=== PATIENT | female | born 1955 | race Caucasian/White ===

== ENCOUNTER 2018-11-25 16:31 | Observation (INO) ==
[2018-11-25 17:13] LABS: Hematocrit 41.8 % (35.3-44.9); Hemoglobin 13.9 g/dL (11.5-15.4); Mean Corpuscular HGB Conc 33.3 g/dL (31.6-35.5); Mean Corpuscular Volume 90.1 fL (83.0-100.0); Mean Platelet Volume 11.3 fL (9.4-12.4); Platelet Count 168 K/mcL (140-400); Red Blood Count 4.64 M/mcL (3.82-4.97); Red Cell Distribution Width 12.5 % (11.5-14.5); White Blood Count 6.8 K/mcL (4.3-11.1)
[2018-11-25 17:22] LABS: Prothrombin Time 11.5 Seconds (9.4-12.1)
--- NOTE | 2018-11-25 17:23 | Emergency Department Note ---
Disposition Clinical Impression: Transient cerebral ischemia Qualifiers: Transient cerebral ischemia type: unspecified Qualified Code(s): G45.9 - Transient cerebral ischemic attack, unspecified Disposition: Admitted As Inpatient Condition: Good Referrals: Zayra Russo CNP [Primary Care Provider] - Forms: ED Satisfaction Letter Time of Disposition: 18:30 General Adult HPI - General Chief complaint: ED Neuro Symptoms/Deficit Stated complaint: R sided weakness Time Seen by Provider: 11/25/18 16:51 Source: patient, family Mode of arrival: private vehicle Limitations: no limitations Nursing Notes Reviewed: Yes Vital Signs Reviewed: Yes - History of Present Illness HPI Narrative: 62-year-old female with past medical history of diabetes and high blood pressure but noticed that today at around 1400 she felt subjectively weak on her right side and began to slur her words. Patient states that she does not take any oral anti-hyperglycemics she is allergic to all of them and only takes long- acting insulin. Patient also states that she used to be on lisinopril but that did not work for her so now she is on an [id number] antihypertensive, however she has not taken this for the last 2 days because she has been busy with her mom being in the hospital. Patient states that she at first called the squad but they were unable to get to her in time and had her bring her out here. She states that she is not know how long her symptoms lasted but she thinks that they were not longer than 30 minutes. Patient has a history of previous TIA, possibly 2 previous TIAs. She was not evaluated for these, she states that she believes that they might have been strokes, however she states she has no residual deficits. Patient also reports that she has recently begun and new diet and exercise plan and has begun stinging herself with bees up to 4 times per day. Pain Scale: 0 - Related Data Home Medications Medication Instructions Recorded Confirmed Acetaminophen [Tylenol] 500 mg PO BID 11/04/17 11/04/17 Insulin Glargine,Hum.rec.anlog 48 - 50 unit SQ QAM 11/04/17 11/04/17 [Basaglar Kwikpen U-100] Tramadol HCl [Ultram] 50 mg PO BID 11/04/17 11/04/17 Allergies Allergy/AdvReac Type Severity Reaction Status Date / Time celecoxib [From Celebrex] Allergy See Verified 11/04/17 19:43 Comments ciprofloxacin [From Cipro] Allergy Abdominal Verified 11/04/17 19:42 Pain Iodinated Contrast Media Allergy See Verified 11/04/17 19:43 [Iodinated Contrast- Oral Comments and IV Dye] Sulfa (Sulfonamide Allergy Hives Verified 11/04/17 19:42 Antibiotics) sumatriptan [From Imitrex] Allergy See Verified 11/04/17 19:43 Comments Review of Systems: In addition to that documented in the HPI above, the additional ROS was obtained: Constitutional: Denies fevers or chills Eyes: Denies vision changes ENMT: Denies sore throat CV: Denies chest pain Resp: Denies SOB GI: Denies vomiting or diarrhea : Denies painful urination MSK: Denies recent trauma Skin: Denies new rashes Neuro: Reports right sided weakness and slurring speech lasting about 30m from [id number]. Endocrine: Denies unexpected weight loss Heme: Denies bleeding disorders Past Medical History - Past Medical History Attestation: Yes The following information was validated with the patient. Medical history: Reports: diabetes, fibromyalgia, hypertension, kidney stones, migraine, TIA, other Psychiatric history: Reports: no psych history [employer] history: Reports: non-contributory - Social History Smoking Status: Never smoker Smokeless Tobacco Status: No Alcohol use: Reports: none Drug use: Reports: none Physical Exam General: A&O x 3. No acute distress. Well developed, well nourished. Head: atraumatic, normocephalic. ENT: No conjunctival injection, no scleral icterus. PERRLA. EOMI. Oropharynx non- erythematous. mucous membranes moist. Neuro: No focal deficits, no speech deficit, no facial droop, mentating well. BUE/BLE Str 5/5. David UE/LE sensation intact. CN II-XII intact. Cerebellar testing with [id number] intact. NIH 0. Pulm: Lungs CTAB A/P. No wheezes, rales, ronchi. Cardio: RRR no m/r/g. Chest not tender to palpation. Abd: Soft, non-distended. Normoactive bowel sounds. Non-tender to palpation. No guarding. Non rigid. Extremities: Radial pulses 2+ david, dorsalis pedis/posterior tibialis 2+ david. No LE edema. No cyanosis, clubbing. Skin: warm, dry, intact. No rashes. Psych: Appropriate mood and affect. Answers questions appropriately. Cooperative with exam. - General Limitations: no limitations General appearance: alert, in no apparent distress Course Vital Signs Temperature 98.7 F 11/25/18 16:37 Pulse Rate 82 11/25/18 16:37 Respiratory Rate 18 11/25/18 16:37 Blood Pressure 187/95 11/25/18 16:37 O2 Sat by Pulse Oximetry 95 11/25/18 16:37 Temperature 98.7 F 11/25/18 16:37 Pulse Rate 67 11/25/18 18:16 Respiratory Rate 18 11/25/18 18:16 Blood Pressure 160/86 11/25/18 18:16 O2 Sat by Pulse Oximetry 97 11/25/18 18:16 Oxygen Delivery Oxygen Delivery Room Air Medical Decision Making - MDM Narrative Medical decision making narrative: 62-year-old female with reportedly to previous TIAs that reports with less than 30 minutes of right-sided weakness and slurring speech about 1400 today. Patient also complaining of hyperglycemia and hypertension. 1800: Patient's initial head CT was negative for any acute intracranial findings. Lab work was unremarkable except for elevated glucose. However given the patient had a collection of symptoms that are concerning for a TIA, she is at increased risk for a stroke within the next 24-48 hours. Patient could benefit from further inpatient workup with an MRI and neurologic consult. Patient was admitted to the hospitalist Dr. Bergeron who agreed to accept the patient to his service. Results of the workup including any imaging and/or labwork was shared with the patient at bedside. Patient was given an opportunity to ask questions at bedside and all of their concerns were addressed. Patient verbalized understanding and agreement with plan of care. Pt remained stable while in the department. - Medical Records Medical records reviewed: Yes I reviewed the patient's medical records. - Lab Data Lab results reviewed: Yes I reviewed the patient's lab results. Result diagrams: 11/25/18 16:55 11/25/18 16:55 Lab Results 11/25/18 11/25/18 11/25/18 Range/Units 16:55 16:55 16:55 WBC 6.8 (4.3-11.1) K/mcL RBC 4.64 (3.82-4.97) M/mcL Hgb 13.9 (11.5-15.4) g/dL Hct 41.8 (35.3-44.9) % MCV 90.1 (83.0-100.0) fL MCH 30.0 (28.0-33.3) pg MCHC 33.3 (31.6-35.5) g/dL RDW 12.5 (11.5-14.5) % Plt Count 168 (140-400) K/mcL MPV 11.3 (9.4-12.4) fL PT 11.5 (9.4-12.1) Seconds INR 1.0 APTT 37.0 H (26.0-36.0) Seconds Sodium 136 (136-145) mEq/L Potassium 3.7 (3.5-5.1) mEq/L Chloride 105 (98-107) mEq/L Carbon Dioxide 24 (23-29) mEq/L BUN 18 (8-23) mg/dL Creatinine 0.72 (0.60-1.20) mg/dL Est GFR ( Amer) > 60 (> 60) Est GFR (Non-Af Amer) > 60 (> 60) BUN/Creatinine Ratio 25 (6-26) Glucose 324 H (70-105) mg/dL Calculated Osmolality 296 (280-300) Calcium 9.3 (8.6-10.3) mg/dL Troponin I < 0.03 (< 0.04) ng/mL Urine Color (Yellow) Urine Clarity (Clear) Urine pH (5.0-8.0) pH Units Ur Specific Pratts (1.010-1.025) Urine Protein (Neg-Trace) mg/dL Urine Glucose (UA) (Normal) mg/dL Urine Ketones (Negative) mg/dL Urine Blood (Negative) Urine Nitrite (Negative) Urine Bilirubin (Negative) Urine Urobilinogen (Normal) mg/dL Ur Leukocyte Esterase (Negative) Urine Microscopic RBC (0-3) per hpf Urine Microscopic WBC (0-3) per hpf Ur Squamous Epith Cells (None-Few) per lpf Urine Bacteria (None-Few) per hpf Hyaline Casts (None-Few) per lpf Ur Culture Indicated? (NO) 11/25/18 Range/Units 17:31 WBC (4.3-11.1) K/mcL RBC (3.82-4.97) M/mcL Hgb (11.5-15.4) g/dL Hct (35.3-44.9) % MCV (83.0-100.0) fL MCH (28.0-33.3) pg MCHC (31.6-35.5) g/dL RDW (11.5-14.5) % Plt Count (140-400) K/mcL MPV (9.4-12.4) fL PT (9.4-12.1) Seconds INR APTT (26.0-36.0) Seconds Sodium (136-145) mEq/L Potassium (3.5-5.1) mEq/L Chloride (98-107) mEq/L Carbon Dioxide (23-29) mEq/L BUN (8-23) mg/dL Creatinine (0.60-1.20) mg/dL Est GFR ( Amer) (> 60) Est GFR (Non-Af Amer) (> 60) BUN/Creatinine Ratio (6-26) Glucose (70-105) mg/dL Calculated Osmolality (280-300) Calcium (8.6-10.3) mg/dL Troponin I (< 0.04) ng/mL Urine Color Yellow (Yellow) Urine Clarity Clear (Clear) Urine pH 7.0 (5.0-8.0) pH Units Ur Specific Pratts 1.018 (1.010-1.025) Urine Protein 100 H (Neg-Trace) mg/dL Urine Glucose (UA) >=1000 H (Normal) mg/dL Urine Ketones Negative (Negative) mg/dL Urine Blood Moderate H (Negative) Urine Nitrite Negative (Negative) Urine Bilirubin Negative (Negative) Urine Urobilinogen Normal (Normal) mg/dL Ur Leukocyte Esterase Negative (Negative) Urine Microscopic RBC 15-30 H (0-3) per hpf Urine Microscopic WBC 3-5 H (0-3) per hpf Ur Squamous Epith Cells Many H (None-Few) per lpf Urine Bacteria None Seen (None-Few) per hpf Hyaline Casts None Seen (None-Few) per lpf Ur Culture Indicated? NO (NO) - Radiology Data Radiology results reviewed: Yes I reviewed the patient's radiology results. - EKG Data EKG #1 EKG attestation: Yes I reviewed and interpreted this EKG. EKG results narrative: Heart rate 71, rhythm sinus, axis normal. NH 209 and prolonged, QRS 88, QTC 4:30. Less than [address] segment elevation in leads V2, V5, V6 which is also seen on previous study dated 03/06/2018.
--- NOTE | 2018-11-25 17:27 | Emergency Department Note ---
Disposition Clinical Impression: Transient cerebral ischemia Qualifiers: Transient cerebral ischemia type: unspecified Qualified Code(s): G45.9 - Transient cerebral ischemic attack, unspecified Disposition: Admitted As Inpatient Condition: Good Time of Disposition: 18:30 General Adult HPI - General Chief complaint: ED Neuro Symptoms/Deficit Stated complaint: R sided weakness Time Seen by Provider: 11/25/18 16:51 Source: patient, family Mode of arrival: private vehicle Limitations: no limitations Nursing Notes Reviewed: Yes Vital Signs Reviewed: Yes - History of Present Illness Pain Scale: 0 - Related Data Home Medications Medication Instructions Recorded Confirmed Acetaminophen [Tylenol] 500 mg PO BID 11/04/17 11/04/17 Insulin Glargine,Hum.rec.anlog 48 - 50 unit SQ QAM 11/04/17 11/04/17 [Basaglar Kwikpen U-100] Tramadol HCl [Ultram] 50 mg PO BID 11/04/17 11/04/17 Allergies Allergy/AdvReac Type Severity Reaction Status Date / Time celecoxib [From Celebrex] Allergy See Verified 11/04/17 19:43 Comments ciprofloxacin [From Cipro] Allergy Abdominal Verified 11/04/17 19:42 Pain Iodinated Contrast Media Allergy See Verified 11/04/17 19:43 [Iodinated Contrast- Oral Comments and IV Dye] Sulfa (Sulfonamide Allergy Hives Verified 11/04/17 19:42 Antibiotics) sumatriptan [From Imitrex] Allergy See Verified 11/04/17 19:43 Comments Past Medical History - Past Medical History Medical history: Reports: diabetes, fibromyalgia, hypertension, kidney stones, migraine, TIA, other Psychiatric history: Reports: no psych history [employer] history: Reports: non-contributory - Social History Smoking Status: Never smoker Smokeless Tobacco Status: No Alcohol use: Reports: none Drug use: Reports: none Physical Exam - General Limitations: no limitations General appearance: alert, in no apparent distress Course Vital Signs Temperature 98.7 F 11/25/18 16:37 Pulse Rate 82 11/25/18 16:37 Respiratory Rate 18 11/25/18 16:37 Blood Pressure 187/95 11/25/18 16:37 O2 Sat by Pulse Oximetry 95 11/25/18 16:37 Temperature 98.7 F 11/25/18 16:37 Pulse Rate 67 11/25/18 18:16 Respiratory Rate 18 11/25/18 18:16 Blood Pressure 160/86 11/25/18 18:16 O2 Sat by Pulse Oximetry 97 11/25/18 18:16 Oxygen Delivery Oxygen Delivery Room Air Medical Decision Making - Lab Data Result diagrams: 11/25/18 16:55 11/25/18 16:55 Lab Results 11/25/18 11/25/18 11/25/18 Range/Units 16:55 16:55 16:55 WBC 6.8 (4.3-11.1) K/mcL RBC 4.64 (3.82-4.97) M/mcL Hgb 13.9 (11.5-15.4) g/dL Hct 41.8 (35.3-44.9) % MCV 90.1 (83.0-100.0) fL MCH 30.0 (28.0-33.3) pg MCHC 33.3 (31.6-35.5) g/dL RDW 12.5 (11.5-14.5) % Plt Count 168 (140-400) K/mcL MPV 11.3 (9.4-12.4) fL PT 11.5 (9.4-12.1) Seconds INR 1.0 APTT 37.0 H (26.0-36.0) Seconds Sodium 136 (136-145) mEq/L Potassium 3.7 (3.5-5.1) mEq/L Chloride 105 (98-107) mEq/L Carbon Dioxide 24 (23-29) mEq/L BUN 18 (8-23) mg/dL Creatinine 0.72 (0.60-1.20) mg/dL Est GFR ( Amer) > 60 (> 60) Est GFR (Non-Af Amer) > 60 (> 60) BUN/Creatinine Ratio 25 (6-26) Glucose 324 H (70-105) mg/dL Calculated Osmolality 296 (280-300) Calcium 9.3 (8.6-10.3) mg/dL Troponin I < 0.03 (< 0.04) ng/mL Urine Color (Yellow) Urine Clarity (Clear) Urine pH (5.0-8.0) pH Units Ur Specific Solomon (1.010-1.025) Urine Protein (Neg-Trace) mg/dL Urine Glucose (UA) (Normal) mg/dL Urine Ketones (Negative) mg/dL Urine Blood (Negative) Urine Nitrite (Negative) Urine Bilirubin (Negative) Urine Urobilinogen (Normal) mg/dL Ur Leukocyte Esterase (Negative) Urine Microscopic RBC (0-3) per hpf Urine Microscopic WBC (0-3) per hpf Ur Squamous Epith Cells (None-Few) per lpf Urine Bacteria (None-Few) per hpf Hyaline Casts (None-Few) per lpf Ur Culture Indicated? (NO) 11/25/18 Range/Units 17:31 WBC (4.3-11.1) K/mcL RBC (3.82-4.97) M/mcL Hgb (11.5-15.4) g/dL Hct (35.3-44.9) % MCV (83.0-100.0) fL MCH (28.0-33.3) pg MCHC (31.6-35.5) g/dL RDW (11.5-14.5) % Plt Count (140-400) K/mcL MPV (9.4-12.4) fL PT (9.4-12.1) Seconds INR APTT (26.0-36.0) Seconds Sodium (136-145) mEq/L Potassium (3.5-5.1) mEq/L Chloride (98-107) mEq/L Carbon Dioxide (23-29) mEq/L BUN (8-23) mg/dL Creatinine (0.60-1.20) mg/dL Est GFR ( Amer) (> 60) Est GFR (Non-Af Amer) (> 60) BUN/Creatinine Ratio (6-26) Glucose (70-105) mg/dL Calculated Osmolality (280-300) Calcium (8.6-10.3) mg/dL Troponin I (< 0.04) ng/mL Urine Color Yellow (Yellow) Urine Clarity Clear (Clear) Urine pH 7.0 (5.0-8.0) pH Units Ur Specific Solomon 1.018 (1.010-1.025) Urine Protein 100 H (Neg-Trace) mg/dL Urine Glucose (UA) >=1000 H (Normal) mg/dL Urine Ketones Negative (Negative) mg/dL Urine Blood Moderate H (Negative) Urine Nitrite Negative (Negative) Urine Bilirubin Negative (Negative) Urine Urobilinogen Normal (Normal) mg/dL Ur Leukocyte Esterase Negative (Negative) Urine Microscopic RBC 15-30 H (0-3) per hpf Urine Microscopic WBC 3-5 H (0-3) per hpf Ur Squamous Epith Cells Many H (None-Few) per lpf Urine Bacteria None Seen (None-Few) per hpf Hyaline Casts None Seen (None-Few) per lpf Ur Culture Indicated? NO (NO) Attestation Statement - Attestation Attestation: I examined this patient and my medical decision-making was reviewed with the Resident Physician. I agree with the documented findings, disposition and treatment plan as described except to the extent set forth below. Patient presents to the ED with a chief complaint of slurred speech and right- sided weakness. Patient states she was talking on the phone and she noticed that she was slurring her words. She got tingling in her right arm and hand. It lasted about 15-30 minutes. Resolved prior to arrival. Feels normal at this time. On examination she is in no acute distress. Moves all extremities. Heart regular. Lungs clear. NIH of 0. Plan. Concern the patient had a TIA. Stroke workup. EKG reviewed with the resident. Normal sinus. Patient's workup is unremarkable. Head CT negative. Concerning she had a TIA. We will admit. Chest X-Ray 11/25/18 17:18 IMPRESSION: No acute abnormality detected. D/ / Oli Amador MD / Oli Amador MD Interpreting Provider: Oli Amador MD Head CT 11/25/18 17:19 IMPRESSION: No acute intracranial abnormality. D/ / Rojelio Azevedo MD / Rojelio Azevedo MD Interpreting Provider: Rojelio Azevedo MD
[2018-11-25 17:31] LABS: BUN/Creatinine Ratio 25 (6-26); Blood Urea Nitrogen 18 mg/dL (8-23); Calcium 9.3 mg/dL (8.6-10.3); Carbon Dioxide 24 mEq/L (23-29); Chloride 105 mEq/L (98-107); Glucose 324 mg/dL (70-105); Osmolality,Calculated 296 (280-300); Potassium 3.7 mEq/L (3.5-5.1); Sodium 136 mEq/L (136-145); eGFR For African Americans > 60 (> 60); eGFR For Non-African Americans > 60 (> 60)
[2018-11-25 17:40] LABS: Bilirubin,Urine Negative (Negative); Blood,Urine Moderate (Negative); Clarity,Urine Clear (Clear); Color,Urine Yellow (Yellow); Glucose,Urine (UA) >=1000 mg/dL (Normal); Ketones,Urine Negative (Negative); Leukocyte Esterase,Urine Negative (Negative); Nitrite,Urine Negative (Negative); Protein,Urine 100 mg/dL (Neg-Trace); Specific Gravity,Urine 1.018 (1.010-1.025); Urobilinogen,Urine Normal (Normal)
[2018-11-25 17:41] LABS: Bacteria,Urine None Seen per hpf (None-Few); Hyaline Casts,Urine None Seen per lpf (None-Few); RBC,Urine 15-30 per hpf (0-3); Squamous Epithelial Cell,Urine Many per lpf (None-Few)
[2018-11-25 17:46] LABS: Troponin I < 0.03 ng/mL (< 0.04)
[2018-11-25] MEDS ORDERED: Dextrose Gel 15 GM/37.5 ML TUBE PO PRN ×2 (20:43)
[2018-11-25] MEDS ORDERED: *HR* Dextrose 50 % in Water (Syg) 50 ML SYRINGE IVP PRN (20:43)
[2018-11-25] MEDS ORDERED: D5% in Water 1,000 ML IVC PRN (20:43)
[2018-11-25] MEDS ORDERED: Insulin DETEMIR 100 UNIT/ML X5UNITS SQ SCH (21:00)
[2018-11-25] MEDS: Insulin LISPRO 300 UNITS/3 ML VIAL SQ SCH (23:20)
[2018-11-25] MEDS ORDERED: Patient Taking Own Medication 1 EACH PO SCH (23:45)
[2018-11-26 03:08] LABS: Alanine Aminotransferase 17 Units/L (7-52); Albumin 3.9 g/dL (3.5-5.7); Albumin/Globulin Ratio 1.5 (1.1-2.2); Alkaline Phosphatase 58 Units/L (34-104); Aspartate Amino Transferase 16 Units/L (13-39); BUN/Creatinine Ratio 20 (6-26); Bilirubin,Total 0.6 mg/dL (0.3-1.0); Blood Urea Nitrogen 13 mg/dL (8-23); Carbon Dioxide 25 mEq/L (23-29); Chloride 102 mEq/L (98-107); Chol/HDL Ratio 2.7 (0-4.9); Cholesterol 198 mg/dL (< 200); Globulin 2.6 g/dL (2.4-3.5); Glucose 325 mg/dL (70-105); HDL Cholesterol 73 mg/dL (40-59); LDL Cholesterol,Calculated 97 mg/dL (0-99); Osmolality,Calculated 297 (280-300); Potassium 3.8 mEq/L (3.5-5.1); Sodium 137 mEq/L (136-145); Total Protein 6.5 g/dL (6.4-8.9); Triglycerides 141 mg/dL (< 150); eGFR For African Americans > 60 (> 60); eGFR For Non-African Americans > 60 (> 60)
[2018-11-26 04:15] LABS: Estimated Average Glucose 209 mg/dl
--- NOTE | 2018-11-26 04:35 | Internal Med History&Physical ---
Date of Encounter: 11/26/18 Time of Encounter: 20:00 Internal Medicine - H&P: HPI Chief complaint: Strokelike symptoms History of present illness: Ms. Young is a 62 year old female with a past medical history of type 2 diabetes, fibromyalgia, hypertension, kidney stones, migraine, and previous TIA who presented to the ED due to concerns for strokelike symptoms. Patient states that around 4 in the afternoon while on the phone she noted that her tongue went numb. Shortly thereafter her right arm became numb and she subsequently began slurring her speech. She subsequently called 911 and noted that as she was speaking with them her symptoms are getting worse. Approximately 15 minutes after symptoms started they resolved. Patient checked her blood pressure at the time and noted a BP of 189/110. She does admit that she has not been taking her blood pressure medication for the past 2 days as she had been dealing with her mother who was undergoing cataract surgery. She states she was formerly on lisinopril but has been taken a Herbal remedy for her blood pressure. She denied any headache, blurry vision, vertigo, ataxia, chest pain, shortness of breath or upper or lower extremity weakness. She states she took a baby aspirin at that time and was subsequently brought into the ED for further evaluation. Patient reports she thinks she has had a TIA in the past a few years ago which she characterizes sudden onset difficulty with writing. She denies any recent illness. She follows a homeopathic regimen and recently begun and new diet and exercise plan. She also reports stinging herself with bees up to 4 times per day for treatment of tendinitis. Patient is a nonsmoker. Denies any alcohol use. Family history noncontributory. On arrival patient was noted to be hypertensive with a blood pressure 187/95. Laboratory workup was relatively unremarkable aside from a blood glucose of 324. CT scan of the head was negative. Patient admitted for further workup of possible TIA. Past Med Surg Social Fam HX - Past Medical History Medical history: diabetes, fibromyalgia, hypertension, kidney stones, migraine, TIA, other Additional medical history: IDDM. Chronic Lyme disease. Heart murmur. Psychiatric history: no psych history - Past Surgical History Additional surgical history: Uterus removed. [place] teeth removed. Parotid gland removed. - Social History Smoking Status: Never smoker Smokeless Tobacco Status: No Alcohol use: none Drug use: none Internal Medicine - H&P: Meds Insulin Glargine [Lantus] 18 - 20 unit SQ BID 11/25/18 [History] Patient Taking Own Medication 2 cap PO BID 11/25/18 [History] Aspirin 81 mg PO DAILY #30 tab.chew 11/26/18 [Rx] C-Biest 2 pump TP DAILY 11/26/18 [History] Allergy/AdvReac Type Severity Reaction Status Date / Time celecoxib [From Celebrex] Allergy See Verified 11/26/18 14:46 Comments ciprofloxacin [From Cipro] Allergy Abdominal Verified 11/26/18 14:46 Pain Iodinated Contrast Media Allergy See Verified 11/26/18 14:46 [Iodinated Contrast- Oral Comments and IV Dye] Sulfa (Sulfonamide Allergy Hives Verified 11/26/18 14:46 Antibiotics) sumatriptan [From Imitrex] Allergy See Verified 11/26/18 14:46 Comments All Systems PM: A 10-system review of systems was performed and is negative for pertinent findings except as documented above in the HPI. - Constitutional Constitutional: no chills, no fever(s), no night sweats - EENT Eyes: no change in vision, no discharge, no pain, no photophobia Ears: no ear discharge, no ear pain, no tinnitus Nose, mouth and throat: no dysphagia, no nasal discharge, no neck pain, no sore throat - Cardiovascular Cardiovascular ROS IM: no chest pain, no diaphoresis, no dyspnea, no lightheadedness, no palpitations, no syncope - Respiratory Respiratory: no cough, no dyspnea, no wheezing, no excessive phlegm production - Gastrointestinal Gastrointestinal: no abdominal pain, no diarrhea, no hematemesis, no hematochezia, no melena, no nausea, no vomiting - Genitourinary Genitourinary: no change in urinary stream, no dysuria, no flank pain, no hematuria - Musculoskeletal Musculoskeletal ROS IM: no numbness, no tingling - Integumentary Integumentary IM: no rash, no unusual bruising - Neurological Neurological ROS: no confusion, no convulsions, no focal weakness, no numbness, no tingling, no tremor(s) - Hematologic/Lymphatic Hematologic/Lymphatic: no easy bruising - Constitutional Vitals: Temp Pulse Resp BP Pulse Ox 98.4 F 63 16 162/87 98 11/26/18 03:37 11/26/18 03:37 11/26/18 03:37 11/26/18 03:37 11/26/18 03:37 Exam: General: Alert and oriented Skin:Normal color, no rash, no lesions. HEENT:EOM, pupils equal, round and reactive. Cardiovascular:Normal S1 & S2, no rubs, murmurs or gallops. No JVD. Pulse regular. Lungs:Normal breath sounds, no wheezes or crackles. Abdomen:Soft, non-tender, no rigidity. Extremities:No deformity, no edema or tenderness, no joint swelling or clubbing. Neurological:Normal cognition and motor skills. Cranial nerves II through XII intact. Muscle strength in the upper and lower extremities 5 out of 5 bilaterally. No evidence of pronator drift. Sensation intact. Pulses:Carotid and radial pulses normal +2. Rest of the physical exam is non contributory Internal Med - H&P Results - Labs CBC & Chem 7: 11/25/18 16:55 11/26/18 01:25 Labs: Short CBC 11/25/18 Range/Units 16:55 WBC 6.8 (4.3-11.1) K/mcL Hgb 13.9 (11.5-15.4) g/dL Hct 41.8 (35.3-44.9) % Plt Count 168 (140-400) K/mcL BMP 11/25/18 11/26/18 16:55 01:25 Sodium 136 137 Potassium 3.7 3.8 Chloride 105 102 Carbon Dioxide 24 25 BUN 18 13 Creatinine 0.72 0.64 Glucose 324 H 325 H Calcium 9.3 9.0 Cardiac Enzymes 11/25/18 Range/Units 16:55 Troponin I < 0.03 (< 0.04) ng/mL Liver Function 11/26/18 Range/Units 01:25 Total Bilirubin 0.6 (0.3-1.0) mg/dL AST 16 (13-39) Units/L ALT 17 (7-52) Units/L Alkaline Phosphatase 58 (34-104) Units/L Albumin 3.9 (3.5-5.7) g/dL Urine 11/25/18 Range/Units 17:31 Urine Color Yellow (Yellow) Urine Clarity Clear (Clear) Urine pH 7.0 (5.0-8.0) pH Units Ur Specific [place] 1.018 (1.010-1.025) Urine Protein 100 H (Neg-Trace) mg/dL Urine Glucose (UA) >=1000 H (Normal) mg/dL - Impressions ITS Impressions Chest X-Ray 11/25/18 17:18 IMPRESSION: No acute abnormality detected. D/ / Oli Amador MD / Oli Amador MD Interpreting Provider: Oli Amador MD Head CT 11/25/18 17:19 IMPRESSION: No acute intracranial abnormality. D/ / Rojelio Azevedo MD / Rojleio Azevedo MD Interpreting Provider: Rojelio Azevedo MD - Assessment and Plan (1) Transient cerebral ischemia Current Visit: Yes Status: Acute Assessment and plan: Patient presenting with symptoms of acute onset right upper extremity numbness, dysarthria and numbness of her tongue lasting approximately 15-20 minutes with complete resolution concerning for TIA. Found to have an elevated blood pressure on arrival. Patient has a history of hypertension for which she has been treating with a herbal remedy. CT scan of the head was negative. Currently neurologically intact. -Telemetry -Neurochecks -Lipid panel; A1c -Echocardiogram; bilateral carotid Doppler -MRI in the a.m. -Neurology consult Qualifiers: Transient cerebral ischemia type: unspecified Qualified Code(s): G45.9 - Transient cerebral ischemic attack, unspecified (2) Hypertension Current Visit: Yes Status: Acute Assessment and plan: History of hypertension. Patient was previously being treated with lisinopril but has switched to a herbal remedy for her blood pressure. She states her blood pressure has been well-controlled but attributes her current elevation to anxiety associated with her current presentation. -We will verify her current regimen and monitor Qualifiers: Hypertension type: essential hypertension Qualified Code(s): I10 - Essential (primary) hypertension (3) Type 2 diabetes mellitus Current Visit: Yes Status: Acute Assessment and plan: Blood glucose found to be elevated greater than 300. -Continue Accu-Cheks and will start patient on sliding plus basal insulin Qualifiers: Diabetes mellitus medical terminologist insulin use: with medical terminologist use Diabetes mellitus complication status: without complication Qualified Code(s): E11.9 - Type 2 diabetes mellitus without complications; Z79.4 - medical terminologist (current) use of insulin (4) DVT prophylaxis Current Visit: Yes Status: Acute Assessment and plan: Subcutaneous heparin - Time Spent With Patient Total time spent is greater than 50% in coordination of care (as documented) at patient's floor/unit and/or counseling patient:
[2018-11-26] MEDS ORDERED: *HR* Heparin 5,000 UNIT/ML VIAL SQ SCH (06:00)
[2018-11-26 08:00] VITALS: BP 152/92
[2018-11-26] MEDS: Insulin LISPRO 300 UNITS/3 ML VIAL SQ SCH (09:00)
--- NOTE | 2018-11-26 10:23 | Neurology - Consult Note ---
Date of Encounter: 11/26/18 Time of Encounter: 10:21 Assessment and Plan (1) Transient cerebral ischemia Current Visit: Yes Status: Acute This is 62-year-old woman woman with multiple risk factors for CVA notably hypertension, diabetes and obesity who developed transient slurred speech and right tongue/arm numbness, concerning for CVA versus TIA versus focal neurological deficits associated with hypertensive crisis. Agree with a full stroke workup including MRI of the brain without contrast, echocardiogram, carotid artery Doppler study. Agree with antiplatelet therapy in the form of aspirin 81 mg daily as well as statin therapy. Risk factor modification advised to the patient including treatment of her hypertension and diabetes. Patient currently has nonfocal neurological examination and it is anticipated that the patient to be discharged home after stroke workup is complete. Qualifiers: Transient cerebral ischemia type: unspecified Qualified Code(s): G45.9 - Transient cerebral ischemic attack, unspecified History of Present Illness Chief complaint: right facial/arm numbness and slurred speech HPI: Ms. Young is a 62 year old female with a past medical history significant for hypertension, diabetes, obesity, hyperlipidemia who developed rather acute onset of numbness in her tongue and right arm, associated with the slurred speech which lasted about 15 minutes with a total resolution. Patient states that she also had the 2 similar episodes in the past however, they are not exactly the same. One episode occurred a few years ago when she was riding she suddenly developed inability to write lasting few minutes with total resolution. She did not seek medical attention at the time. Then she mentioned another episode that when she was driving she suddenly felt that her left arm was numb. This lasted also few minutes with a total resolution. In the emergency room, the patient blood pressure was found to be elevated. Patient was admitted for further evaluation for possible TIA versus stroke. Initially CT of the head was reported no acute intracranial abnormality. Currently the patient is asymptomatic. Patient was started on aspirin 325 mg daily. Past Med Surg Social Fam HX - Past Medical History Medical history: diabetes, fibromyalgia, hypertension, kidney stones, migraine, TIA, other Additional medical history: IDDM. Chronic Lyme disease. Heart murmur. Psychiatric history: no psych history - Past Surgical History Additional surgical history: Uterus removed. [place] teeth removed. Parotid gland removed. - Social History Smoking Status: Never smoker Smokeless Tobacco Status: No Alcohol use: none Drug use: none Medications and Allergies Acetaminophen [Tylenol] 500 mg PO BID 11/04/17 [History] Insulin Glargine [Lantus] 18 - 20 unit SQ BID 11/25/18 [History] Patient Taking Own Medication 2 cap PO BID 11/25/18 [History] Allergy/AdvReac Type Severity Reaction Status Date / Time celecoxib [From Celebrex] Allergy See Verified 11/04/17 19:43 Comments ciprofloxacin [From Cipro] Allergy Abdominal Verified 11/04/17 19:42 Pain Iodinated Contrast Media Allergy See Verified 11/04/17 19:43 [Iodinated Contrast- Oral Comments and IV Dye] Sulfa (Sulfonamide Allergy Hives Verified 11/04/17 19:42 Antibiotics) sumatriptan [From Imitrex] Allergy See Verified 11/04/17 19:43 Comments All Systems: The remainder of the systems were reviewed and are negative - Constitutional Constitutional ROS IM: as per HPI - Nose, Mouth, Throat Nose, mouth and throat: abnormal hearing (no), bleeding gums (no), change in voice (no) - Cardiovascular Cardiovascular ROS IM: chest pain (no), chest pain at rest (no), chest pain with activity (no), claudication (no) - Respiratory Respiratory IM: cough (no), dyspnea (no), hemoptysis (no), dyspnea on exertion (no) - Gastrointestinal Gastrointestinal: abdominal pain (no), change in bowel habits (no) - Musculoskeletal Musculoskeletal ROS IM: abnormal gait (no), arthralgias (no), atrophy (no), back pain (no) - Neurological Neurological ROS: abnormal gait (no), abnormal hearing (no), abnormal movements (no), abnormal speech (yes), numbness (yes) - Psychiatric Psychiatric general PM: abnormal sleep pattern (no), anhedonia (no) - Endocrine Endocrine IM: change in body appearance (no) Physical Examination - Vital Signs Vital Signs: Initial Vital Signs Temp Pulse Resp BP Pulse Ox 98.7 F 82 18 187/95 95 11/25/18 16:37 11/25/18 16:37 11/25/18 16:37 11/25/18 16:37 11/25/18 16:37 - Constitutional General appearance: comfortable - Neurologic Detailed motor examination: full strength in all major muscle groups Motor examination - right side: 5/5: deltoids, biceps, triceps, wrist flexion, wrist extension, asl interpreter, hip flexors, tibialis Anterior, quadriceps, toe extension (EHL), plantarflexion Motor examination - left side: 5: deltoids, biceps, triceps, wrist flexion, wrist extension, hip flexors, asl interpreter, quadriceps, tibialis Anterior, toe extension (EHL), plantarflexion Detailed sensory examination: intact Reflex and gait examination: intact Reflexes: Biceps: 2+, Triceps: 2+, Brachioradialis: 2+, Patella: 2+, Achilles: 2+ Mental Status Examination: awake, alert, oriented to person, oriented to place, oriented to time, follows commands appropriately, answers questions appropriately, no agnosia, no aphasia, no aproxia Cranial nerve examination: PERRL, EOMI, visual leon intact, corneal reflexes brisk symmetrically, sensory to face intact, mastication intact, no facial asymmetry is present, no dysarthria, hearing is intact symmetrically, soft palate elevates bilaterally upon phonation, gag reflex intact, flexes SCM and trapezius muscles symmetrically with full power, tongue protrudes midline, no atrophy or facial fasiculations present Cerebellar examination: no dysmetria, performs finger to nose and heel to echeverria symmetrically without ataxia, no gait ataxia, no truncal ataxia, no difficulty with rapid alternating movements Results - Laboratory Findings CBC and BMP: 11/25/18 16:55 11/26/18 01:25 Abnormal lab findings: Abnormal lab results APTT 37.0 Seconds (26.0-36.0) H 11/25/18 16:55 Glucose 325 mg/dL (70-105) H 11/26/18 01:25 POC Glucose 193 mg/dL (70-99) H 11/25/18 21:33 Hemoglobin A1c 8.9 % (-5.6) H 11/26/18 01:25 HDL Cholesterol 73 mg/dL (40-59) H 11/26/18 01:25 Urine Protein 100 mg/dL (Neg-Trace) H 11/25/18 17:31 Urine Glucose (UA) >=1000 mg/dL (Normal) H 11/25/18 17:31 Urine Blood Moderate (Negative) H 11/25/18 17:31 Urine Microscopic RBC 15-30 per hpf (0-3) H 11/25/18 17:31 Urine Microscopic WBC 3-5 per hpf (0-3) H 11/25/18 17:31 Ur Squamous Epith Cells Many per lpf (None-Few) H 11/25/18 17:31 Consult Discharge Plan - Plan Referrals: Zayra Russo, RN DELIVERY [Primary Care Provider] -
--- NOTE | 2018-11-26 14:57 | Discharge Summary ---
- NOTES TO OUTPATIENT PROVIDER Notes to Outpatient Provider: Presenting with TIA symptoms which did resolve-MRI completed with no acute CVA noted. -Evaluated by neurology-baby aspirin blood pressure control as well as glucose control Date of Encounter: 11/26/18 Time of Encounter: 14:37 - Discharge Diagnosis (1) Transient cerebral ischemia Priority: Primary Status: Acute Qualifiers: Transient cerebral ischemia type: unspecified Qualified Code(s): G45.9 - Transient cerebral ischemic attack, unspecified (2) Hypertension Priority: Secondary Status: Acute Qualifiers: Hypertension type: essential hypertension Qualified Code(s): I10 - Essential (primary) hypertension (3) Type 2 diabetes mellitus Priority: Secondary Status: Acute Qualifiers: Diabetes mellitus terminal press operator insulin use: with custodial use Diabetes mellitus complication status: without complication Qualified Code(s): E11.9 - Type 2 diabetes mellitus without complications; Z79.4 - skilled nursing (current) use of insulin Hospital course: Ms. Young is a 62 year old female Past medical history type 2 diabetes for myalgia hypertension kidney stones migraines previous TIA who presented to the ED due to concerns a strokelike symptoms. Patient states that she began to notice tingling of her tongue and that it would not want she was talking on the phone she also noted some right arm numbness and she began to slur her speech. She did call 911 however symptoms were worsened while she was on the following. Symptoms lasted approximately 15 minutes and began to resolve. She did check her blood pressure was noted she had a elevated blood pressure 189 when 10 she admits that she has not been taking her blood pressure medication for the past 2 days. Patient is on herbal remedies for her blood pressure and states it has been controlled very well with the medication for the past 2 years. She follows a homeopathic regime and eats organically and has had good glycemic control. However upon presentation lab work was relatively unremarkable aside from blood glucose at 324. CT of head was negative for anything acute. She underwent MRI of head and brain which revealed moderate to severe chronic small vessel ischemic changes but no acute brain parenchymal abnormalities. Vascular preliminary of carotid duplex appears to be normal bilaterally patient was evaluated by Dr. Prater and advise to place on aspirin. Lipid profile was within normal limits. Patient h as been at neurological baseline with no neurological deficits noted. Advised patient to resume home blood pressure medication and maintain control of blood glucose and the follow-up with her primary care provider. She will be given prescription for baby aspirin patient verbalizes understanding and is ready for discharge. - Time Spent with Patient Total time spent providing and/or coordinating discharge services: - Discharge Medications Prescriptions: New Aspirin 81 mg PO DAILY #30 tab.chew Continued Insulin Glargine [Lantus] 18 - 20 unit SQ BID Patient Taking Own Medication 2 cap PO BID C-Biest 2 pump TP DAILY Home Medications: Insulin Glargine [Lantus] 18 - 20 unit SQ BID 11/25/18 [History] Patient Taking Own Medication 2 cap PO BID 11/25/18 [History] Aspirin 81 mg PO DAILY #30 tab.chew 11/26/18 [Rx] C-Biest 2 pump TP DAILY 11/26/18 [History] Allergies/Adverse Reactions: Allergy/AdvReac Type Severity Reaction Status Date / Time celecoxib [From Celebrex] Allergy See Verified 11/26/18 14:46 Comments ciprofloxacin [From Cipro] Allergy Abdominal Verified 11/26/18 14:46 Pain Iodinated Contrast Media Allergy See Verified 11/26/18 14:46 [Iodinated Contrast- Oral Comments and IV Dye] Sulfa (Sulfonamide Allergy Hives Verified 11/26/18 14:46 Antibiotics) sumatriptan [From Imitrex] Allergy See Verified 11/26/18 14:46 Comments Date of admission: 11/25/18 20:03 Primary care physician: Zayra Russo CNP Consults: 11/25/18 20:38 Consult to Neurology [CONS] Routine Consulting Provider: Neurology [facility] Reason for Consult: CVA/TIA workup Call Completed: No Discharging clinician: Myrtle Elizondo Anticipated date of discharge: 11/26/18 - Constitutional Vitals: Temp Pulse Resp BP Pulse Ox 98.0 F 64 15 152/92 97 11/26/18 07:49 11/26/18 07:49 11/26/18 07:49 11/26/18 07:49 11/26/18 07:49 Exam: Skin: Free of rash and discoloration. Eyes: Sclera is white. There is no discharge from eyes. ENMT: Oral/pharyngeal mucosa is normal in appearance. There is no discharge from nose or ears. Respiratory: Normal breath sounds with no crackles and wheezes bilaterally. CV: Heart is regular with no gallop or murmur. GI: Abdomen is flat and soft with no palpable mass or visceromegaly. : There is no tenderness in patient's flanks bilaterally. Neuro exam: He has good strength in upper and lower extremities. He has normal eye movements. Psychiatric: He has normal affect. His thought process is appropriate to the situation. - Patient Status Disposition: Home, Self-Care Condition: Good Functional capacity at discharge: independent ambulation Overall status at discharge: patient is back to baseline - Discharge Instructions Instructions: Diabetes Mellitus Type 2 in Adults (DC), Chronic Hypertension (DC) Follow Up With: Zayra Russo, DATA OPERATIONS LEADER [Primary Care Provider] - - Diet and Activity Activity: increase activity as tolerated Diet: diabetic diet
[2018-11-26] MEDS ORDERED: Aspirin Enteric Coated 325 MG Tablet PO ONE (20:37)
--- NOTE | 2018-11-27 00:32 | Electrocardiograph Report ---
[facility] Test Date: 2018-11-25 Pat Name: Mandy Young Department: EXAM30 Room: 3B46 Gender: F Laboratory Analyst: : 1955 Requested By: Raya Tomlinson Order Number: [id number] Reading MD: Gregorio Quiñonez Measurements Intervals [place] Rate: 71 P: 56 UT: 209 QRS: 16 QRSD: 88 T: 56 QT: 395 QTc: 430 Interpretive Statements Sinus rhythm Probable left atrial enlargement Electronically Signed On 11-27-2018 0:31:21 EDT by Gregorio Quiñonez
== END 2018-11-26 15:30 | disposition home or self-care (01) ==
LOC: EMEROOARM 16:31 → 3BNU 16:31
PROVIDERS: ADMIT Internal Medicine; ATTEND Internal Medicine